=== PATIENT | male | born 1980 | race Caucasian/White ===

== ENCOUNTER 2016-10-14 03:32 | Emergency (ER) | payer BC ==
[2016-10-14] MEDS ORDERED: DIPHENHYDRAMINE HCL 50 MG/1 ML VIAL ONE (03:51)
[2016-10-14] MEDS ORDERED: METOCLOPRAMIDE HCL 5 MG/ML 2ML VIAL ONE (03:51)
[2016-10-14] MEDS ORDERED: KETOROLAC TROMETHAMINE 15 MG/ML VIAL ONE (03:52)
== END 2016-10-14 04:56 | disposition home or self-care (01) ==
LOC: ED 03:32
DX: G43.909 Migraine, unspecified, not intractable, without status migrainosus (principal)
CPT/HCPCS: 99282; 96375 ×2; 96365; 99283; J1200; J2765; J1885